=== PATIENT | female | born 1990 ===

== ENCOUNTER → 2017-11-08 | Outpatient (CLI) | payer OTHER ==
[~2017-11-08] MED LIST: FRS325T PO; Hydrocodone Bit/Acetaminophen PO; IBP800T PO; Ibuprofen PO; OXYC-12 PO; PREN1TAB25 PO
--- NOTE | 2017-11-08 16:16 | Diagnostic Imaging Report ---
INDICATION: survey. TECHNIQUE: Multiple Real-time grayscale images were obtained over the gravid uterus. COMPARISON: None. FINDINGS: A single live intrauterine fetus is seen measuring 29 weeks 1 day in size with an EDC of 01/23/2018. The fetus is in breech presentation. The amniotic fluid appears qualitatively normal with an BERNARDINO of 7.5 cm. The placenta is posterior and grade 1 with no evidence of previa. The heart rate is 136 BPM. The survey was very limited due to position and body habitus. The kidneys, bladder, and stomach appear unremarkable. The intracranial structures, four chamber heart view, cord insertion, and three-vessel cord were not obtainable. The spine could not be visualized. The maternal adnexa could not be visualized. There was no free fluid. Biometrical measurements are as follows: Biparietal 7.3 cm, age 29 weeks 3 days. Head circumference 27.0 cm, age 29 weeks 4 days. Abdominal circumference 25.5 cm, age 29 weeks 5 days. Femur length 5.1 cm, age 27 weeks 3 days. Sonographic estimate age: 29 weeks 1 days. Sonographic estimated date of delivery: 01/23/18. Estimated Weight: 1304 gm (+/- 190 gm). LMP percentile: 98%. heart rate: 136 beats per minute. number: 1 of 1. IMPRESSION: Single live intrauterine fetus measuring 29 weeks 1 day in size. The survey is limited as most of the structures could not be well visualized as described above. Consider a followup study. Dictated by: Dictated on workstation # [id number]
== END ==
LOC: RAD 15:06
PROVIDERS: ATTEND Family Medicine
DX: Z36.89 Encounter for other specified antenatal screening (principal); Z3A.29 29 weeks gestation of pregnancy
CPT/HCPCS: 76805

== ENCOUNTER → 2017-12-01 | Outpatient (CLI) | payer OTHER ==
--- NOTE | 2017-12-01 16:57 | Diagnostic Imaging Report ---
INDICATION: Incomplete anatomic survey Ultrasonography is performed with comparison made to study of 11/08/2017. A melendez intrauterine fetus is seen in cephalic presentation. Amniotic fluid index is 11 cm. The placenta is fundal without evidence of previa. cardiac activity is present with a rate of 146 beats per minute. Spine and three-vessel umbilical cord appear to be unremarkable. The majority of the remainder of the anatomy is not well-evaluated. This is, in part, due to patient positioning and maternal body habitus. No maternal adnexal region abnormality is identified. IMPRESSION: Continued limitations in performing anatomic survey. No definite anomaly is identified. Dictated by: Dictated on workstation # [id number]
== END ==
LOC: RAD 15:52
PROVIDERS: ATTEND Family Medicine
DX: Z36.89 Encounter for other specified antenatal screening (principal); Z3A.34 34 weeks gestation of pregnancy
CPT/HCPCS: 76816

== ENCOUNTER → 2017-12-18 | Outpatient (CLI) | payer OTHER ==
--- NOTE | 2017-12-18 12:47 | Diagnostic Imaging Report ---
INDICATION: Anatomical survey. TECHNIQUE: Multiple real-time grayscale images were obtained over the gravid uterus. COMPARISON: 12/01/2017. FINDINGS: There is a single living intrauterine in a cephalic presentation. There is normal volume of amniotic fluid. Placenta is posterior. There is no evidence of previa. Anatomical survey is markedly limited due to body habitus. Heart rate is 143 beats per minute and regular. The biometry correlates with a gestational age of 35 weeks 1 day. Biometrical measurements are as follows: Biparietal 8.62 cm, age 34 weeks 6 days. Head circumference 31.71 cm, age 35 weeks 5 days. Abdominal circumference 31.47 cm, age 35 weeks 3 days. Femur length 6.64 cm, age 34 weeks 2 days. Sonographic estimate age: 35 weeks 1 days. Sonographic estimated date of delivery: 01/21/18. Estimated Weight: 2577 gm (+/- 376 gm). LMP percentile: 52%. heart rate: 143 beats per minute. number: 1 of 1. IMPRESSION: Single living intrauterine with a sonographically estimated gestational age of 35 weeks 1 day and estimated date of confinement of January 21, 2018. Anatomical survey is suboptimal due to body habitus. Dictated by: Dictated on workstation # [id number]
== END ==
LOC: RAD 09:46
PROVIDERS: ATTEND Family Medicine
DX: Z36.89 Encounter for other specified antenatal screening (principal); Z3A.35 35 weeks gestation of pregnancy
CPT/HCPCS: 36415; 76816; 82951; 82952; 82962

== ENCOUNTER 2018-01-12 15:37 | Outpatient (CLI) | payer OTHER ==
[2018-01-12 16:51] VITALS: BP 118/76
== END 2018-01-12 16:58 | disposition home or self-care (01) ==
LOC: RAD 15:37
PROVIDERS: ATTEND Family Medicine
DX: O24.415 Gestational diabetes mellitus in pregnancy, controlled by oral hypoglycemic drugs (principal); Z3A.38 38 weeks gestation of pregnancy

== ENCOUNTER 2021-11-01 09:58 | Inpatient (IN) | payer MEDICAID, OTHER ==
[2021-11-01] VITALS (26 sets, daily range): BP systolic 126–166; BP diastolic 61–95
[~2021-11-01] VITALS: Ht 152 cm; Wt 103.0 kg
[~2021-11-01 09:58] MED LIST changes: +IBUP-844 PO; +METF-397 PO; +SERT-412 PO
[2021-11-01] MEDS ORDERED: D5 LR IV SOLUTION 1,000 ML IV ONE (10:47)
[2021-11-01] MEDS ORDERED: D5 LR IV SOLUTION 1,000 ML IV SCH (11:00)
[2021-11-01] MEDS ORDERED: MINERAL OIL 30 ML TOP PRN (11:00)
[2021-11-01 11:15] LABS: BASOPHILS % (AUTO) 0 % (0-10); EOSINOPHILS % (AUTO) 0 % (0-10); HEMATOCRIT 38 % (35-52); HEMOGLOBIN 13.1 g/dL (11.5-16.0); LYMPHOCYTES # (AUTO) 2.2 10^3/uL (1.0-4.0); LYMPHOCYTES % (AUTO) 21 % (12-44); MEAN CORPUSCULAR HEMOGLOBIN 30 pg (25-34); MEAN CORPUSCULAR HGB CONC 35 g/dL (32-36); MEAN CORPUSCULAR VOLUME 88 fL (80-99); MEAN PLATELET VOLUME 11.3 fL (9.0-12.2); MONOCYTES # (AUTO) 0.7 10^3/uL (0.0-1.0); MONOCYTES % (AUTO) 7 % (0-12); NEUTROPHILS # (AUTO) 7.5 10^3/uL (1.8-7.8); NEUTROPHILS % (AUTO) 71 % (42-75); PLATELET COUNT 230 10^3/uL (130-400); WHITE BLOOD COUNT 10.5 10^3/uL (4.3-11.0)
[2021-11-01] MEDS ORDERED: OXYTOCIN PRE-MIX DRIP 500 ML IV ONE (11:21)
[2021-11-01] MEDS ORDERED: fentaNYL INJ 100 MCG/2 ML AMP ONE (12:23)
[2021-11-01] MEDS ORDERED: LIDOCAINE/EPI 2% 1:200,00 (XYLOCAINE) 10 ML VIAL ONE (12:25)
[2021-11-01] MEDS ORDERED: fentaNYL INJ 100 MCG/2 ML AMP IVP PRN (12:30)
[2021-11-01] MEDS ORDERED: CATHETER FLUSH 10 ML SYR IV SCH (14:00)
[2021-11-01] MEDS: IBUPROFEN 600 MG (MOTRIN) TAB PO PRN (15:00)
--- NOTE | 2021-11-01 15:07 | History & Physical-OB ---
OB - Chief Complaint & HPI Date/Time Date of Admission: Date of Admission: Nov 01, 2021 at 10:00 Date seen by a Provider: Nov 01, 2021 Time Seen by a Provider: 12:45 Chief Complaint/History OB-Reason for Admission/Chief: Onset of Labor Hx : 5 Hx Para: 4 Expected Date of Delivery: Nov 05, 2021 Gestational Age in Weeks: 39 Gestational Age in Days: 3 History of Labs O+, antibody neg, RI. HIV/hepB/RPR NR. GC/chlamydia neg. TSH high (4.0) with normal free T4 but positive TPO antibodies, normal 1 hour glucola, GBS neg. Other Pt presented to Labor and Delivery with contractions since 6-7 am, no noted leaking fluid, some small vaginal bleeding present and normal movement. Allergies and Home Medications Allergies Coded Allergies: No Known Drug Allergies (Unverified , 04/24/10) Patient Home Medication List Home Medication List Reviewed: Yes Ferrous Sulfate (Ferrous Sulfate) 325 Mg (65 Mg Iron) Tablet, 325 MG PO DAILY, (Reported) Entered as Reported by: PONCHO COOK on 11/01/21 1509 Last Action: Reviewed Levothyroxine Sodium (Levothyroxine Sodium) 25 Mcg Tablet, 25 MCG PO DAILY, (Reported) Entered as Reported by: PONCHO COOK on 11/01/21 1509 Last Action: Reviewed Vit#96/Ferrous Fum/Fa ( Tablet) 1 Each Tablet, 1 EACH PO DAILY, (Reported) Entered as Reported by: BIANCA BUSBY on 07/16/11 1216 Last Action: Reviewed Discontinued Medications Ibuprofen (Ibu) 600 Mg Tablet, 600 MG PO Q6H PRN for CRAMPS Prescribed by: EDER CONNELLY on 01/20/18 1017 Last Action: Discontinued Sertraline HCl (Sertraline HCl) 25 Mg Tablet, 25 MG PO DAILY, (Reported) Entered as Reported by: PONCHO COOK on 01/18/18 0830 Last Action: Discontinued OB - History Hx of Present Care: Yes Ultrasounds: Abnormal US findings (initially low lying placenta, resolved on repeat) Obstetrical Complications: None Information Induced Hypertension: No Maternal Gestational Diabetes: No Hemorrhage: No Obstetrical History Hx : 5 Hx Para: 4 Hx # Term Pregnancies: 4 Hx # Pregnancies: 0 Number of Living Children: 4 Hx Termination: No Hx Multiple Gestation: No Hx Ectopic : No Hx Stillbirth: No Hx Complication: No Hx Induced Hypertens: No Hx Maternal Gestational Diabet: No Hx Hemorrhage: Yes Delivery History Hx Dystocia: No Hx Forceps Assisted Delivery: No Hx Vacuum Extraction Assisted: No Hx Placenta Abnormality: Yes (MEU for retained membranes with previous ) Hx Large For Gestational Age I: Yes Hx Small for Gestational Age I: No Hx Section: No Hx Vaginal Delivery Post C-Sec: No Hx Blood Disorders: Yes (anemic) Adverse Rxn to Tranfusion: No Patient Past Medical History PMHx: Depression with psychosis Subclinical hypothyroidism PSurgHx: Appendectomy Social History/Family History Alcohol Use: Denies Use Recreational Drug Use: No Smoking Cessation: Never smoker Immunizations Influenza Vaccine Up-to-Date: Yes; Up-to-Date (Apr 16, 2021) First/Initial COVID19 Vaccine: 04/16/2021 Second COVID19 Vaccination: 05/25/2021 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[employer] Hepatitis A: Yes Hepatitis B: Yes Tetanus Booster (TDap): Less than 5yrs (08/30/2021) Rubella: immune RPR/VDRL: Negative GBS Status: Negative HBsAG: Negative OB - Admission Exam Physical Exam Vitals: Vital Signs 11/01/21 11/01/21 10:09 11:50 Temp 36.4 Pulse 90 Resp 18 B/P (MAP) 135/93 (107) Pulse Ox 99 O2 Delivery Room Air HEENT: NCAT Lungs: Clear Abdomen: Gravid Extremities: Normal Cervical Dilatation: 7cm Effacement: 75% Station: -3 Membranes: Intact Contractions on Admission: < 5 Minutes Apart Labs Laboratory Tests Test 11/01/21 11:07 Range/Units White Blood Count 10.5 4.3-11.0 10^3/uL Red Blood Count 4.33 3.80-5.11 10^6/uL Hemoglobin 13.1 11.5-16.0 g/dL Hematocrit 38 35-52 % Mean Corpuscular Volume 88 80-99 fL Mean Corpuscular Hemoglobin 30 25-34 pg Mean Corpuscular Hemoglobin Concent 35 32-36 g/dL Red Cell Distribution Width 13.8 10.0-14.5 % Platelet Count 230 130-400 10^3/uL Mean Platelet Volume 11.3 9.0-12.2 fL Immature Granulocyte % (Auto) 1 % Neutrophils (%) (Auto) 71 42-75 % Lymphocytes (%) (Auto) 21 12-44 % Monocytes (%) (Auto) 7 0-12 % Eosinophils (%) (Auto) 0 0-10 % Basophils (%) (Auto) 0 0-10 % Neutrophils # (Auto) 7.5 1.8-7.8 10^3/uL Lymphocytes # (Auto) 2.2 1.0-4.0 10^3/uL Monocytes # (Auto) 0.7 0.0-1.0 10^3/uL Eosinophils # (Auto) 0.0 0.0-0.3 10^3/uL Basophils # (Auto) 0.0 0.0-0.1 10^3/uL Immature Granulocyte # (Auto) 0.1 0.0-0.1 10^3/uL OB - Assessment/Plan/Diagnosis Assessment Assessment: active labor Admission Dx Active labor at full term Admission Status: Inpatient Order (span 2 midnights) Reason for Inpatient Admission: Labor, delivery and course Plan Plan: Expectant Management (attempted AROM at time of exam, no bag of fluid felt) PONCHO COOK MD Nov 01, 2021 15:07
[2021-11-01] MEDS ORDERED: LEVO25TA5 PO (15:09)
[2021-11-01] MEDS ORDERED: FERR-74 PO (15:09)
--- NOTE | 2021-11-01 15:19 | OB Labor & Delivery Record ---
Vag Delivery Note Vag Delivery Note Date of Delivery: 11/01/21 Preoperative Diagnosis: Piero Montague is a (31 /Para 5 / 4,Gestational Age 39w3d admitted in active labor Postoperative Diagnosis: Same Surgeon: PONCHO COOK Anesthesia: None Delivery Type: Findings: Viable female infant, apgars 5/8/9, weight 8#14 Lacerations: none Intact placenta with 3 vessel cord. Brief less than 60 second shoulder dystocia. No nuchal cord, body cord. Estimated Blood Loss: 250 ml Complications: Mild shoulder dystocia Condition: Stable Description of Procedure: The patient is a 31 year old female who presented in active labor. She was admitted and informed consent was obtained. Her labor course was unremarkable. She progressed to complete dilatation and began to push. She was then set up for delivery. The 's head was delivered atraumatically in the EUGENIE position. The head took several pushes before being fully delivered, so shoulder dystocia was anticipated and help called for. After delivery of the head, the anterior shoulder did not immediately delivery, and McRobert's positioning was used but the shoulder did not deliver so suprapubic pressure was applied behind the anterior shoulder which relieved the dystocia within one minute after head delivery. The posterior shoulder and remainder of the infant's body were then delivered without difficulty. Upon delivery, the cord was doubly clamped and cut and the was handed off to the pediatric staff. An intact placenta with 3-vessel cord delivered via Silvio and there was found to be minimal bleeding.~ Vigorous fundal massage was performed and the fundus was found to be firm. IV oxytocin was given. Examination of the vagina and perineum revealed no lacerations. Following the delivery, sponge, instrument and needle counts were correct. Mom and baby were both in stable condition in the labor suite. Vitals - Labs Vital Signs - I&O Vital Signs Date Time Temp Pulse Resp B/P (MAP) Pulse Ox O2 Delivery O2 Flow Rate FiO2 11/01/21 11:50 36.4 90 18 135/93 (107) Room Air 11/01/21 10:09 36.2 95 16 99 Room Air Labs Laboratory Tests 11/01/21 11:07: White Blood Count 10.5, Red Blood Count 4.33, Hemoglobin 13.1, Hematocrit 38, Mean Corpuscular Volume 88, Mean Corpuscular Hemoglobin 30, Mean Corpuscular Hemoglobin Concent 35, Red Cell Distribution Width 13.8, Platelet Count 230, Mean Platelet Volume 11.3, Immature Granulocyte % (Auto) 1, Neutrophils (%) (Auto) 71, Lymphocytes (%) (Auto) 21, Monocytes (%) (Auto) 7, Eosinophils (%) (Auto) 0, Basophils (%) (Auto) 0, Neutrophils # (Auto) 7.5, Lymphocytes # (Auto) 2.2, Monocytes # (Auto) 0.7, Eosinophils # (Auto) 0.0, Basophils # (Auto) 0.0, Immature Granulocyte # (Auto) 0.1 Shoulder Dystocia Note Shoulder Dystocia Start Time of Delivery of HEAD: 14:25 Time shoulder dystocia called: 14:25 Time of delivery of BODY: 14:26 Positional Maneuvers Francisco, Suprapubic: Right PONCHO COOK MD Nov 01, 2021 15:19
[2021-11-01] MEDS ORDERED: WITCH HAZEL(TUCKS) 40 EA JAR TOP PRN (15:45)
[2021-11-01] MEDS ORDERED: BENZOCAINE/MENTHOL (DERMOPLAST) 56 ML CAN TP PRN (15:45)
[2021-11-01] MEDS ORDERED: OXYTOCIN PRE-MIX DRIP 500 ML IV SCH ×2 (15:45→16:45)
[2021-11-01] MEDS ORDERED: IBUPROFEN 600 MG (MOTRIN) TAB PO ONE (15:51)
[2021-11-01] MEDS ORDERED: METHYLERGONOVINE 0.2 MG/ML (METHERGINE) AMP ONE (16:52)
[2021-11-01] MEDS ORDERED: TRANEXAMIC ACID INJECTION 1,000 MG in NS (IVPB) 50 ML IV NR (17:00)
[2021-11-01 17:18] LABS: HEMATOCRIT 34 % (35-52); HEMOGLOBIN 11.4 g/dL (11.5-16.0); MEAN CORPUSCULAR HEMOGLOBIN 30 pg (25-34); MEAN CORPUSCULAR HGB CONC 34 g/dL (32-36); MEAN CORPUSCULAR VOLUME 89 fL (80-99); MEAN PLATELET VOLUME 11.8 fL (9.0-12.2); PLATELET COUNT 231 10^3/uL (130-400)
[2021-11-01 17:20] LABS: WHITE BLOOD COUNT 19.3 10^3/uL (4.3-11.0)
--- NOTE | 2021-11-01 17:33 | Progress Note ---
Subjective Subjective/Events-last exam Called by nurse, patient with large amount of bleeding. Dr. Martinez was in the hospital and at bedside right away, bolus of pitocin and LR running and gilbert catheter inserted already. She had also already given cytotec 800 mcg rectally and methergine 0.2 mg IM and had performed bimanual exam and removed significant amount of clot. At the time of my arrival we additionally ordered tranexamic acid, but bleeding had stopped and uterine fundus was firm prior to the medication being available. Filament Welder used after bleeding stopped and events reviewed with patient. Objective Exam Last Set of Vital Signs Vital Signs Date Time Temp Pulse Resp B/P (MAP) Pulse Ox O2 Delivery O2 Flow Rate FiO2 11/01/21 11:50 36.4 90 18 135/93 (107) Room Air 11/01/21 10:09 99 Capillary Refill : Greater Than 3 Seconds General: Alert, No Acute Distress Heart: Regular Rate Abdomen: Other (fundus firm slightly above pubic symphisis) Extremities: No Edema Neuro: Normal Speech Psych/Mental Status: Mental Status NL Results/Procedures Lab Laboratory Tests 11/01/21 11:07: White Blood Count 10.5, Red Blood Count 4.33, Hemoglobin 13.1, Hematocrit 38, Mean Corpuscular Volume 88, Mean Corpuscular Hemoglobin 30, Mean Corpuscular Hemoglobin Concent 35, Red Cell Distribution Width 13.8, Platelet Count 230, Mean Platelet Volume 11.3, Immature Granulocyte % (Auto) 1, Neutrophils (%) (Auto) 71, Lymphocytes (%) (Auto) 21, Monocytes (%) (Auto) 7, Eosinophils (%) (Auto) 0, Basophils (%) (Auto) 0, Neutrophils # (Auto) 7.5, Lymphocytes # (Auto) 2.2, Monocytes # (Auto) 0.7, Eosinophils # (Auto) 0.0, Basophils # (Auto) 0.0, Immature Granulocyte # (Auto) 0.1 11/01/21 17:07: White Blood Count 19.3H, Red Blood Count 3.80, Hemoglobin 11.4L, Hematocrit 34L, Mean Corpuscular Volume 89, Mean Corpuscular Hemoglobin 30, Mean Corpuscular Hemoglobin Concent 34, Red Cell Distribution Width 14.1, Platelet Count 231, Mean Platelet Volume 11.8 Assessment/Plan Assessment/Plan (1) hemorrhage Status: Acute Assessment & Plan: Loss of 1930 cc blood, but bleeding controlled and vital signs normal at this time. Tranexamic acid and H&H pending. Will plan to remove gilbert in a few hours if no further bleeding. Qualifiers: Qualified Codes: O72.2 - Delayed and secondary hemorrhage PONCHO COOK MD Nov 01, 2021 17:33
[2021-11-01] MEDS ORDERED: METHYLERGONOVINE 0.2 MG/ML (METHERGINE) AMP IM ONE (19:00)
[2021-11-02] MEDS: CATHETER FLUSH 10 ML SYR IV SCH (00:11)
[2021-11-02] MEDS: DOCUSATE SODIUM 100 MG (COLACE) CAP PO SCH ×3 (00:54→21:15)
[2021-11-02 00:55] VITALS: BP 130/65
[2021-11-02] MEDS: IBUPROFEN 600 MG (MOTRIN) TAB PO PRN ×4 (00:55→17:48)
[2021-11-02 03:56] VITALS: BP 108/69
[2021-11-02 06:22] LABS: BASOPHILS # (AUTO) 0.1 10^3/uL (0.0-0.1); BASOPHILS % (AUTO) 0 % (0-10); EOSINOPHILS % (AUTO) 0 % (0-10); HEMATOCRIT 28 % (35-52); HEMOGLOBIN 9.5 g/dL (11.5-16.0); LYMPHOCYTES # (AUTO) 3.4 10^3/uL (1.0-4.0); LYMPHOCYTES % (AUTO) 23 % (12-44); MEAN CORPUSCULAR HEMOGLOBIN 30 pg (25-34); MEAN CORPUSCULAR HGB CONC 34 g/dL (32-36); MEAN CORPUSCULAR VOLUME 88 fL (80-99); MEAN PLATELET VOLUME 11.8 fL (9.0-12.2); MONOCYTES # (AUTO) 1.1 10^3/uL (0.0-1.0); MONOCYTES % (AUTO) 7 % (0-12); NEUTROPHILS # (AUTO) 10.2 10^3/uL (1.8-7.8); NEUTROPHILS % (AUTO) 69 % (42-75); PLATELET COUNT 194 10^3/uL (130-400); WHITE BLOOD COUNT 14.9 10^3/uL (4.3-11.0)
[2021-11-02] MEDS: FERROUS SULF 325 MG (IRON) TAB PO SCH (08:26)
[2021-11-02] MEDS: PRENATAL VITAMIN 1 EA TAB PO SCH (08:28)
[2021-11-02 08:30] VITALS: BP 114/64
[2021-11-02 12:00] VITALS: BP 109/61
--- NOTE | 2021-11-02 12:46 | Postpartum Progress Note ---
Note Note Day # 1 Subjective: Patient is without complaints. Ambulating, voiding. Tolerating a regular diet without nausea or vomiting. Normal lochia. Pain is well controlled with oral pain medications. Breast/Bottle feeding. Objective: Physical Exam: General - Alert and oriented, no apparent distress Abdomen - Soft, appropriately tender to palpation, non-distended, fundus firm at umbilicus Extremities - no edema, negative Prince's bilaterally Assessment: 31 yo G5 now P5 post- day # 1, status post spontaneous vaginal delivery with shoulder dystocia and PPH Recovering well, hemodynamically stable Plan: Routine care. Encourage breast feeding. Encourage ambulation. Ferrous sulfate supplementation, hgb 9.5 after 1900 cc blood loss Plan for discharge tomorrow with [address] Wright Vitals - Labs Vital Signs - I&O Vital Signs Date Time Temp Pulse Resp B/P (MAP) Pulse Ox O2 Delivery O2 Flow Rate FiO2 11/02/21 12:00 36.4 84 18 109/61 (77) 97 Room Air 11/02/21 08:30 36.3 89 18 114/64 (81) 99 Room Air 11/02/21 03:56 36.0 88 18 108/69 (82) 98 Room Air 11/02/21 00:55 36.7 100 18 130/65 (86) 98 Room Air 11/01/21 20:00 36.0 96 18 126/83 (97) 99 Room Air 11/01/21 18:39 91 130/61 (84) Room Air 11/01/21 18:09 108 132/74 (93) Room Air 11/01/21 17:39 90 140/79 (99) Room Air 11/01/21 17:23 86 135/80 (98) Room Air 11/01/21 17:18 36.5 90 166/77 (106) 99 Room Air 11/01/21 17:13 84 145/83 (103) 99 Room Air 11/01/21 17:08 91 159/95 (116) 98 Room Air 11/01/21 17:02 93 146/80 (102) Room Air 11/01/21 17:00 94 146/76 (99) Room Air 11/01/21 16:52 115 136/70 (92) Room Air 11/01/21 16:46 114 131/74 (93) Room Air 11/01/21 16:28 90 130/82 (98) Room Air 11/01/21 16:13 85 138/88 (105) Room Air 11/01/21 15:58 75 134/82 (99) Room Air 11/01/21 15:43 80 138/82 (100) Room Air 11/01/21 15:28 80 140/78 (98) Room Air 11/01/21 15:13 85 138/75 (96) Room Air 11/01/21 15:00 89 18 146/76 (99) Room Air 11/01/21 14:45 36.3 93 139/74 (95) Room Air 11/01/21 14:26 97 20 142/76 (98) Room Air 11/01/21 14:15 106 142/71 (94) Non Rebreather 10.00 11/01/21 14:00 107 20 133/81 (98) Room Air I & O 11/02/21 07:00 Intake Total 1660 ml Output Total 0 ml Balance 1660 ml Labs Laboratory Tests 11/01/21 17:07: White Blood Count 19.3H, Red Blood Count 3.80, Hemoglobin 11.4L, Hematocrit 34L, Mean Corpuscular Volume 89, Mean Corpuscular Hemoglobin 30, Mean Corpuscular Hemoglobin Concent 34, Red Cell Distribution Width 14.1, Platelet Count 231, Mean Platelet Volume 11.8 11/02/21 05:48: White Blood Count 14.9H, Red Blood Count 3.17L, Hemoglobin 9.5L, Hematocrit 28L, Mean Corpuscular Volume 88, Mean Corpuscular Hemoglobin 30, Mean Corpuscular Hemoglobin Concent 34, Red Cell Distribution Width 14.0, Platelet Count 194, Mean Platelet Volume 11.8, Immature Granulocyte % (Auto) 1, Neutrophils (%) (Auto) 69, Lymphocytes (%) (Auto) 23, Monocytes (%) (Auto) 7, Eosinophils (%) (Auto) 0, Basophils (%) (Auto) 0, Neutrophils # (Auto) 10.2H, Lymphocytes # (Auto) 3.4, Monocytes # (Auto) 1.1H, Eosinophils # (Auto) 0.0, Basophils # (Auto) 0.1, Immature Granulocyte # (Auto) 0.1 JESUS MARTINEZ MD Nov 02, 2021 12:46
[2021-11-02 17:30] VITALS: BP 113/67
[2021-11-03 01:40] VITALS: BP 102/55
[2021-11-03] MEDS: IBUPROFEN 600 MG (MOTRIN) TAB PO PRN ×3 (01:42→13:29)
[2021-11-03] MEDS: CATHETER FLUSH 10 ML SYR IV SCH (07:00)
[2021-11-03] MEDS: DOCUSATE SODIUM 100 MG (COLACE) CAP PO SCH (07:50)
[2021-11-03] MEDS: FERROUS SULF 325 MG (IRON) TAB PO SCH (07:50)
[2021-11-03] MEDS: PRENATAL VITAMIN 1 EA TAB PO SCH (07:50)
[2021-11-03 07:51] VITALS: BP 120/74
[2021-11-03] MEDS ORDERED: IBUP-844 PO (10:04)
[2021-11-03] MEDS ORDERED: DOCU100C37 PO (10:04)
--- NOTE | 2021-11-03 10:04 | Discharge Summary ---
Diagnosis/Chief Complaint Date of Admission Nov 01, 2021 at 10:00 Date of Discharge 11/03/21 Admission Diagnosis Admission Diagnosis Third trimester 40 week gestation Discharge Diagnosis of LGA shoulder dystocia anemia of acute blood loos post hemorrhage Problems/Diagnosis: (1) hemorrhage Assessment & Plan: Loss of 1930 cc blood, but bleeding controlled and vital signs normal at this time. Tranexamic acid and H&H pending. Will plan to remove gilbert in a few hours if no further bleeding. Qualifiers: Qualified Codes: O72.2 - Delayed and secondary hemorrhage Status: Acute Discharge Summary-Simple/Stand Discharge Physical Examination Allergies: Coded Allergies: No Known Drug Allergies (Unverified , 04/24/10) Vitals & I&Os Vital Sign - Last 12Hours Date Time Temp Pulse Resp B/P (MAP) Pulse Ox O2 Delivery O2 Flow Rate FiO2 11/03/21 07:51 36.2 100 18 120/74 (89) 100 Room Air 11/01/21 14:15 10.00 General Appearance: Alert, Oriented X3, No Acute Distress Respiratory: Clear to Auscultation, Normal Air Movement Cardiovascular: Regular Rate, No Murmurs Abdominal: Normal Bowel Sounds, Soft, No Tenderness, Other (fundus firm and below umbilicus) Extremities: No Edema, No Tenderness/Swelling Neuro: Normal Speech Hospital Course See final discharge diagnosis. Discharge Condition at discharge stable Instructions to patient/family Please see electronic discharge instructions given to patient. Discharge Medications Reviewed and agree with Discharge Medication list on patient's Discharge Instruction sheet JESUS MARTINEZ MD Nov 03, 2021 10:03
--- NOTE | 2021-11-03 10:05 | Discharge Summary ---
Discharge Inst-[facility] Reconcile Patient Problems Problems Reviewed?: Yes Depart Medications New, Converted or Re-Newed RX: Transmitted to Pharmacy New Medications: Docusate Sodium (Docusate Sodium) 100 Mg Capsule 100 MG PO BID, #28 CAP Ibuprofen (Ibu) 600 Mg Tablet 600 MG PO Q6HR PRN for PAIN-MILD (1-4), #90 TAB Continued Medications: Ferrous Sulfate (Ferrous Sulfate) 325 Mg (65 Mg Iron) Tablet 325 MG PO DAILY, TAB Levothyroxine Sodium (Levothyroxine Sodium) 25 Mcg Tablet 25 MCG PO DAILY, TAB Vit#96/Ferrous Fum/Fa ( Tablet) 1 Each Tablet 1 EACH PO DAILY Take for one month or as long as Follow Up/Instructions Goal/Follow Up: [address] Wright Activity Activity: Activity as Tolerated Nothing Inside Vagina: No Douching, No [place], No Tampons Diet Discharge Diet: No Restrictions Symptoms to Report to : Bleeding Excessive, Fever Over 101 Degrees F For Any Problems or Questions: Contact Your Physician JESUS MARTINEZ MD Nov 03, 2021 10:05
[2021-11-03 13:30] VITALS: BP 120/61
[2021-11-03 14:05] VITALS: BP 120/61
--- NOTE | 2021-11-04 14:18 | Physician Query Clarification ---
PQ-Intro New Diagnosis Admission/Discharge Admission Date: Nov 01, 2021 at 10:00 Discharge Date: Nov 03, 2021 at 14:05 Dr. Martinez, The medical record reflects the following clinical scenario: History/Risk Factors: , hemorrhage Clinical Findings: hgb/hct 13.1/38 down to 9.5/28, EBL 1900 cc Treatment: 325 Ferrous sulfate PO Question: What condition best reflects the above clinical scenario? Please document a response in the Progress Noter or Discharge Summary. 1. acute blood loss anemia d/t hemorrhage 2. no acute blood loss anemia. hemorrhage only 3. Other, with explanation of the clinical findings. 4. Clinically undetermined, no explanation for the clinical findings. PHYSICIAN RESPONSE What condition reflects above: 1 In responding to this query, please exercise your independent professional judgment. The purpose of this communication is to more accurately reflect the complexity of your patients condition. The fact that a question is asked does not imply that any particular answer is desired or expected. Thank you for your timely response to this clarification. Requestors name: Henny THIS PHYSICIAN QUERY FORM IS A PERMANENT PART OF THE MEDICAL RECORD HENNY AYALA Nov 04, 2021 14:18 JESUS MARTINEZ MD Nov 04, 2021 20:03
== END 2021-11-03 14:05 | disposition home or self-care (01) | DRG 806 ==
LOC: WSo 09:58 → LDRP 09:58 → WSo 10:00 → LDRP 10:00
PROVIDERS: ADMIT Family Medicine; ATTEND Family Medicine
PROC: 10E0XZZ Delivery of Products of Conception, External Approach (ICD-10-PCS; principal; 2021-11-01)
DX: O99.284 Endocrine, nutritional and metabolic diseases complicating childbirth (principal); D62 Acute posthemorrhagic anemia; Z37.0 Single live birth; E03.8 Other specified hypothyroidism; O72.2 Delayed and secondary postpartum hemorrhage; O90.81 Anemia of the puerperium; O66.0 Obstructed labor due to shoulder dystocia; Z3A.39 39 weeks gestation of pregnancy
CPT/HCPCS: 36415; 85025; 85027; 86850; 86900; 86901; 99212